=== PATIENT | male | born 1980 | race Caucasian/White ===

== ENCOUNTER 2021-10-09 01:01 | Emergency (ER) | payer MEDICAID, MEDICARE ==
[~2021-10-09] VITALS: Ht 180.3 cm; Wt 55.7 kg
[2021-10-09 01:05] VITALS: BP 108/73
== END 2021-10-09 08:29 | disposition left against medical advice (07) ==
LOC: ER 01:02
DX: R19.5 Other fecal abnormalities (principal); Z53.21 Procedure and treatment not carried out due to patient leaving prior to being seen by health care provider